=== PATIENT | female | born 1950 | race Caucasian/White ===

== ENCOUNTER 2019-07-30 11:04 | Observation (INO) | payer MEDICARE, OTHER ==
[2019-07-30 11:15] VITALS: RESP 18
[2019-07-30] MEDS ORDERED: LABETALOL 5 MG/ML VIAL MDV IVP STA (11:38)
--- NOTE | 2019-07-30 11:47 | ED ---
General Adult HPI - General Chief complaint: Chest Pain Stated complaint: Chest pressure Source: patient, RN notes reviewed, old records reviewed Mode of arrival: ambulatory Limitations: no limitations - History of Present Illness Initial comments: This a 68-year-old female who presents emergency department stating that over the last few weeks her blood pressures been getting higher and she is been going to see her primary medical care doctor and was recently put on clonidine a few days ago. Patient states last night she had a hot feeling and pressure in her chest and down her right arm and her blood pressure was elevated. Patient states on the way here continues but it is now gone. Patient states she does not have any pain in her chest but is soft hot feeling and a little bit of a tightness. Patient denies any shortness of breath or difficulty breathing. Patient denies any diaphoretic episodes or patient's any nausea. Patient denies any abdomen pelvis. Patient denies any fever chills or cough. Patient states her blood pressures been elevated lately and every time she gets a flushed feeling in her face as well. - Related Data Allergies Allergy/AdvReac Type Severity Reaction Status Date / Time No Known Allergies Allergy Verified 07/30/19 11:15 Review of Systems ROS Statement: Those systems with pertinent positive or pertinent negative responses have been documented in the HPI. ROS Other: All systems not noted in ROS Statement are negative. Past Medical History Past Medical History: Hypertension Additional Past Medical History / Comment(s): glaucoma History of Any Multi-Drug Resistant Organisms: None Reported Past Surgical History: Hysterectomy Past Psychological History: No Psychological Hx Reported Smoking Status: Never smoker Past Alcohol Use History: None Reported Past Drug Use History: None Reported General Exam - General Exam Comments Initial Comments: GENERAL: Patient is well-developed and well-nourished. Patient is nontoxic and well- hydrated and is in mild distress. ENT: Neck is soft and supple. No significant lymphadenopathy is noted. Oropharynx is clear. Moist mucous membranes. Neck has full range of motion without elici ting any pain. EYES: The sclera were anicteric and conjunctiva were pink and moist. Extraocular m ovements were intact and pupils were equal round and reactive to light. Eyelids were unremarkable. PULMONARY: Unlabored respirations. Good breath sounds bilaterally. No audible rales rhonchi or wheezing was noted. CARDIOVASCULAR: There is a regular rate and rhythm without any murmurs gallops or rubs. ABDOMEN: Soft and nontender with normal bowel sounds. SKIN: Skin is clear with no lesions or rashes and otherwise unremarkable. NEUROLOGIC: Patient is alert and oriented x3. Cranial nerves II through XII are grossly intact. Motor and sensory are also intact. Normal speech, volume and content. Symmetrical smile. MUSCULOSKELETAL: Normal extremities with adequate strength and full range of motion. LYMPHATICS: No significant lymphadenopathy is noted PSYCHIATRIC: Normal psychiatric evaluation. Limitations: no limitations Course Vital Signs 07/30/19 07/30/19 11:11 12:05 Temperature 98.1 F Pulse Rate 66 59 L Respiratory 18 18 Rate Blood Pressure 174/86 144/78 O2 Sat by Pulse 98 98 Oximetry Medical Decision Making - Medical Decision Making EKG shows a normal sinus rhythm at 60 bpm VT interval is on a 54 QRS is 92 QT interval 440 QTC is 440. Patient's EKG has some T-wave inversions in leads V1 and V2 and V3. Chest x-ray shows no acute abnormality. I went back into the room and the patient was asymptomatic at this time. I spoke with the [facility] hospitalist and he agreed to admit the patient admitted the patient wrote admitting orders - Lab Data Result diagrams: 07/30/19 11:46 07/30/19 11:46 Lab Results 07/30/19 07/30/19 07/30/19 Range/Units 11:46 11:46 11:46 WBC 5.3 (3.8-10.6) k/uL RBC 4.23 (3.80-5.40) m/uL Hgb 12.5 (11.4-16.0) gm/dL Hct 37.1 (34.0-46.0) % MCV 87.7 (80.0-100.0) fL MCH 29.5 (25.0-35.0) pg MCHC 33.6 (31.0-37.0) g/dL RDW 12.5 (11.5-15.5) % Plt Count 218 (150-450) k/uL Neutrophils % 67 % Lymphocytes % 22 % Monocytes % 6 % Eosinophils % 1 % Basophils % 1 % Neutrophils # 3.6 (1.3-7.7) k/uL Lymphocytes # 1.2 (1.0-4.8) k/uL Monocytes # 0.3 (0-1.0) k/uL Eosinophils # 0.1 (0-0.7) k/uL Basophils # 0.0 (0-0.2) k/uL PT 10.5 (9.0-12.0) sec INR 1.0 (<1.2) APTT 25.4 (22.0-30.0) sec Sodium 138 (137-145) mmol/L Potassium 4.2 (3.5-5.1) mmol/L Chloride 101 (98-107) mmol/L Carbon Dioxide 25 (22-30) mmol/L Anion Gap 12 mmol/L BUN 6 L (7-17) mg/dL Creatinine 0.65 (0.52-1.04) mg/dL Est GFR (CKD-EPI)AfAm >90 (>60 ml/min/1.73 sqM) Est GFR (CKD-EPI)NonAf >90 (>60 ml/min/1.73 sqM) Glucose 93 (74-99) mg/dL Calcium 9.8 (8.4-10.2) mg/dL Magnesium 1.8 (1.6-2.3) mg/dL Total Bilirubin 0.8 (0.2-1.3) mg/dL AST 20 (14-36) U/L ALT 31 (9-52) U/L Alkaline Phosphatase 84 (38-126) U/L Troponin I (0.000-0.034) ng/mL Total Protein 8.1 (6.3-8.2) g/dL Albumin 4.7 (3.5-5.0) g/dL 07/30/19 Range/Units 11:46 WBC (3.8-10.6) k/uL RBC (3.80-5.40) m/uL Hgb (11.4-16.0) gm/dL Hct (34.0-46.0) % MCV (80.0-100.0) fL MCH (25.0-35.0) pg MCHC (31.0-37.0) g/dL RDW (11.5-15.5) % Plt Count (150-450) k/uL Neutrophils % % Lymphocytes % % Monocytes % % Eosinophils % % Basophils % % Neutrophils # (1.3-7.7) k/uL Lymphocytes # (1.0-4.8) k/uL Monocytes # (0-1.0) k/uL Eosinophils # (0-0.7) k/uL Basophils # (0-0.2) k/uL PT (9.0-12.0) sec INR (<1.2) APTT (22.0-30.0) sec Sodium (137-145) mmol/L Potassium (3.5-5.1) mmol/L Chloride (98-107) mmol/L Carbon Dioxide (22-30) mmol/L Anion Gap mmol/L BUN (7-17) mg/dL Creatinine (0.52-1.04) mg/dL Est GFR (CKD-EPI)AfAm (>60 ml/min/1.73 sqM) Est GFR (CKD-EPI)NonAf (>60 ml/min/1.73 sqM) Glucose (74-99) mg/dL Calcium (8.4-10.2) mg/dL Magnesium (1.6-2.3) mg/dL Total Bilirubin (0.2-1.3) mg/dL AST (14-36) U/L ALT (9-52) U/L Alkaline Phosphatase (38-126) U/L Troponin I <0.012 (0.000-0.034) ng/mL Total Protein (6.3-8.2) g/dL Albumin (3.5-5.0) g/dL Disposition Clinical Impression: Chest pain Disposition: ADMITTED IP TO THIS HOSP Referrals: Mariama Johnson DO [Primary Care Provider] - 1-2 days Time of Disposition: 13:01
[2019-07-30 12:08] LABS: Basophils % (A) 1 %; Eosinophils % (A) 1 %; HCT 37.1 % (34.0-46.0); HGB 12.5 gm/dL (11.4-16.0); Lymphocytes % (A) 22 %; MCH 29.5 pg (25.0-35.0); MCHC 33.6 g/dL (31.0-37.0); MCV 87.7 fL (80.0-100.0); Mean Platelet Volume 7.2; Monocytes % (A) 6 %; Neutrophils % (A) 67 %; Platelet Count 218 k/uL (150-450); RBC 4.23 m/uL (3.80-5.40); RDW 12.5 % (11.5-15.5); WBC 5.3 k/uL (3.8-10.6)
[2019-07-30 12:09] LABS: Eosinophils # (A) 0.1 k/uL (0-0.7); Lymphocytes # (A) 1.2 k/uL (1.0-4.8); Monocytes # (A) 0.3 k/uL (0-1.0); Neutrophils # (A) 3.6 k/uL (1.3-7.7)
[2019-07-30 12:17] LABS: ALT 31 U/L (9-52); AST 20 U/L (14-36); African American GFR (CKD) >90 (>60 ml/min/1.73 sqM); Albumin 4.7 g/dL (3.5-5.0); Alkaline Phosphatase 84 U/L (38-126); Anion Gap 12 mmol/L; Blood Urea Nitrogen 6 mg/dL (7-17); Calcium 9.8 mg/dL (8.4-10.2); Carbon Dioxide 25 mmol/L (22-30); Chloride 101 mmol/L (98-107); Glucose 93 mg/dL (74-99); Magnesium 1.8 mg/dL (1.6-2.3); Non-African American GFR(CKD) >90 (>60 ml/min/1.73 sqM); Potassium 4.2 mmol/L (3.5-5.1); Sodium 138 mmol/L (137-145); Total Bilirubin 0.8 mg/dL (0.2-1.3); Total Protein 8.1 g/dL (6.3-8.2)
[2019-07-30 12:19] LABS: Partial Thromboplastin Time 25.4 sec (22.0-30.0); Prothrombin Time 10.5 sec (9.0-12.0)
--- NOTE | 2019-07-30 12:21 | XR ---
EXAMINATION TYPE: XR chest 2V DATE OF EXAM: 07/30/2019 COMPARISON: NONE HISTORY: Chest pain for 1.5 weeks. TECHNIQUE: Frontal and lateral views of the chest are obtained. FINDINGS: Overlying EKG leads are seen. There is no focal air space opacity, pleural effusion, or pn eumothorax seen. The cardiac silhouette size is within normal limits. The osseous structures are i ntact. IMPRESSION: No acute process.
[2019-07-30] MEDS ORDERED: NITROGLYCERIN SL TABS 0.4 MG TAB SUBLINGUAL PRN (13:19)
[2019-07-30] MEDS ORDERED: cloNIDine HCL 0.1 MG TAB PO PRN (14:58)
[2019-07-30] MEDS ORDERED: ACETAMINOPHEN TAB 500 MG TAB PO PRN (14:59)
[2019-07-30] MEDS ORDERED: TEMAZEPAM 15 MG CAP PO PRN (14:59)
[2019-07-30] MEDS ORDERED: ALPRAZolam 0.25 MG TAB PO PRN (14:59)
[2019-07-30] MEDS ORDERED: HYDROcodone/APAP 5-325MG 1 EACH TAB PO PRN (14:59)
[2019-07-30] MEDS ORDERED: hydrALAZINE HCL 20 MG/ML 1 ML VIAL IVP PRN (15:44)
[2019-07-30] MEDS ORDERED: amLODIPine 10 MG TAB PO SCH (16:15)
[2019-07-30] MEDS: NITROGLYCERIN OINT 1 INCH/GM PACKET TOPICAL SCH (17:48)
--- NOTE | 2019-07-30 21:17 | HP ---
HISTORY AND PHYSICAL CHIEF COMPLAINT: Chest pain. HISTORY OF PRESENT ILLNESS: This 68-year-old woman with a past medical history of multiple medical problems including hypertension, glaucoma, being followed by Dr. Mariama Johnson in the outpatient setting complains of chest pain. The patient is under tremendous stress recently according to her by selling apartment, daughter's wedding and the son having a baby and such. The patient apparently having symptoms for the past several days. Patient had chest pain which is felt in the anterior part of chest, which is mostly occurring when the patient is going to sleep with some palpitations. Patient also had some flushing sensations soft eating food also. Blood pressure elevated up to more than 200. Patient came to [facility], admitted for further evaluation. There is no history of fever, rigors. No history of headache, loss of consciousness, seizures. PAST MEDICAL HISTORY: Hypertension, glaucoma. MEDICATIONS: Prior to admission include home medications are Catapres 0.1 p.o. b.i.d. p.r.n., Toprol- XL 25 mg p.o. daily, Simbrinza 1 drop both eyes b.i.d. ALLERGIES: None. FAMILY HISTORY: History of CHF in the family. SOCIAL HISTORY: No history of smoking. No alcohol intake. REVIEW OF SYSTEMS: ENT As mentioned earlier. CARDIOVASCULAR As mentioned earlier. RESPIRATORY No cough, no hemoptysis. GI No nausea, vomiting, or diarrhea. No dysuria. NERVOUS No numbness or weakness. ALLERGY/IMMUNOLOGY No asthma or hayfever. MUSCULOSKELETAL As mentioned earlier. HEMATOLOGY/ONCOLOGY Negative. ENDOCRINE No history of diabetes or hypothyroidism. SKIN Negative. CONSTITUTIONAL As mentioned earlier. PSYCHIATRY As mentioned earlier. PHYSICAL EXAMINATION: Alert and oriented x3. Pulse 59, blood pressure 170/71, respiration 18, temp 97.7, pulse ox 98% on room air. HEENT: Conjunctivae normal. Oral mucosa moist. NECK: No jugular venous distention. No lymph node enlargement. CARDIOVASCULAR: S1, S2. RESPIRATORY: Diminished breath sounds at the bases. No rhonchi, no crackles. ABDOMEN: Soft, nontender. LEGS: No swelling. NERVOUS SYSTEM: Higher functions mentioned earlier. Moves all four limbs. No focal deficits. LYMPHATICS: No lymph node in neck or axilla. SKIN: No rash. JOINTS: No active deforming arthropathy. LAB: CBC, CMP within normal. Troponins are negative. Chest x-ray no acute changes. EKG personally reviewed shows ST-T changes minimal. ASSESSMENT: 1. Chest pain, possible unstable angina. 2. ST-T changes on EKG. 3. Accelerated hypertension and hypertensive urgency. 4. Hypertension. 5. Glaucoma. 6. Hysterectomy. 7. Social stressors. RECOMMENDATION AND DISCUSSION: In this 68-year-old woman who presented with multiple medical issues, at this time I recommend to continue current medications, continue symptomatic treatment. Antiplatelet and beta blockers. Adjust medications. Cardiology consultation. Possible stress test. Guarded prognosis because of multiple complex medical issues. Further recommendations to follow. MMODL / IJN: [id number] /
[2019-07-30] MEDS: DORZOLAMIDE HCL 2% DROPS 10 ML BTL BOTH EYES SCH (21:45)
[2019-07-30] MEDS: BRIMONIDINE TARTRATE 0.2% DROPS 5 ML BTL BOTH EYES SCH (21:45)
[2019-07-30] MEDS: METOPROLOL SUCCINATE (ER) 25 MG TAB.ER.24H PO SCH (21:45)
[2019-07-30] MEDS ORDERED: MELATONIN 3 MG TABLET PO SCH (23:15)
[2019-07-31] MEDS: NITROGLYCERIN OINT 1 INCH/GM PACKET TOPICAL SCH ×3 (00:02→11:49)
[2019-07-31 04:48] LABS: Cholesterol 205 mg/dL (<200); HDL Cholesterol 44 mg/dL (40-60); LDL Cholesterol,Calculated 141 mg/dL (0-99); Triglycerides 98 mg/dL (<150)
[2019-07-31] MEDS ORDERED: PANTOPRAZOLE 40 MG TABLET PO SCH (07:30)
[2019-07-31] MEDS ORDERED: amLODIPine 5 MG TAB PO SCH (09:00)
[2019-07-31] MEDS ORDERED: METOPROLOL SUCCINATE (ER) 25 MG TAB.ER.24H PO SCH (09:00)
[2019-07-31] MEDS ORDERED: ASPIRIN 325 MG TAB PO SCH (09:00)
[2019-07-31] MEDS: METOPROLOL SUCCINATE (ER) 25 MG TAB.ER.24H PO SCH (10:32)
[2019-07-31] MEDS: BRIMONIDINE TARTRATE 0.2% DROPS 5 ML BTL BOTH EYES SCH (10:33)
[2019-07-31] MEDS: DORZOLAMIDE HCL 2% DROPS 10 ML BTL BOTH EYES SCH (10:33)
[2019-07-31 11:32] VITALS: BP 106/64; PULSE 55; TEMP 97.5
--- NOTE | 2019-07-31 11:36 | P.CRDCN ---
History of Present Illness Consult date: 07/31/19 Chief complaint: Chest pain History of present illness: This is a very pleasant 68-year-old female patient with a past medical history significant for hypertension and dyslipidemia presented to the hospital complaining of chest discomfort. The patient has been struggling with uncontrolled blood pressure for the last several weeks. Initially she was started on lisinopril and according to her that given her chest discomfort and subsequently she was changed to losartan which also she did not feel good on it. After that she was started on Norvasc and also she felt weak on the Norvasc. The reason she presented to the hospital this time because she has been experiencing chest discomfort. The patient described the discomfort as a nonexertional and mainly in the mid the chest without any radiation or associated symptoms of shortness of breath, dizziness, heart racing, or syncope. She stated that the chest discomfort is mostly by the end of the day when she is laying in bed and she has been noticing that the pressure has been elevated at night. Currently she is chest pain-free. The EKG showed sinus rhythm with T-wave inversion in the anteroseptal leads. I don't have any old EKG to compare to this one. She had 3 sets of cardiac enzymes came in to be unremarkable. The chest x-ray did not show any acute abnormalities. Currently the patient is chest pain-free. I had a long discussion with the patient regarding the next hong p which is ruling out coronary artery disease as an etiology for her symptoms. I also did tell the patient that the chest discomfort could be related to uncontrolled blood pressure. Because the chest discomfort is not exertional and because that she is chest pain-free at this point I did recommend proceeding with a stress test. The patient is going to get up and around and if she is chest pain-free she possibly can be discharged home and have the stress test as an outpatient. Unless she develop any chest pain or chest discomfort and at that point I would pursue with a coronary angiogram. Past Medical History Past Medical History: Hypertension Additional Past Medical History / Comment(s): glaucoma History of Any Multi-Drug Resistant Organisms: None Reported Past Surgical History: Hysterectomy Past Anesthesia/Blood Transfusion Reactions: No Reported Reaction Past Psychological History: No Psychological Hx Reported Smoking Status: Never smoker Past Alcohol Use History: None Reported Past Drug Use History: None Reported - Past Family History Father Family Medical History: Congestive Heart Failure (CHF) Mother Family Medical History: Dementia Medications and Allergies Home Medications Medication Instructions Recorded Confirmed Type Brinzolamide/Brimonidine Tart 1 drop BOTH EYES BID 07/30/19 07/30/19 History [Simbrinza 1%-0.2% Eye Drops] cloNIDine HCL [Catapres] 0.1 mg PO BID PRN 07/30/19 07/30/19 History Acetaminophen Tab [Tylenol] 500 mg PO Q6HR PRN tab 07/31/19 Rx Atorvastatin Calcium [Lipitor] 10 mg PO DAILY #30 tab 07/31/19 Rx Metoprolol Succinate (ER) [Toprol 25 mg PO BID #30 tab.er.24h 07/31/19 Rx XL] amLODIPine [Norvasc] 5 mg PO DAILY #30 tab 07/31/19 Rx Allergies Allergy/AdvReac Type Severity Reaction Status Date / Time No Known Allergies Allergy Verified 07/30/19 13:12 Physical Exam Vitals: Vital Signs Temp Pulse Pulse Resp BP BP BP 07/31/19 11:30 97.5 F L 55 L 18 106/64 07/31/19 07:00 97.9 F 63 18 136/76 07/31/19 04:00 98.4 F 63 18 130/68 07/30/19 23:42 97.8 F 53 L 18 120/64 07/30/19 20:51 07/30/19 20:00 98.0 F 56 L 18 131/70 07/30/19 17:46 62 116/68 07/30/19 15:03 163/68 07/30/19 14:16 97.7 F 59 L 18 170/71 07/30/19 12:05 59 L 18 144/78 Pulse Ox 07/31/19 11:30 96 07/31/19 07:00 98 07/31/19 04:00 97 07/30/19 23:42 96 07/30/19 20:51 97 07/30/19 20:00 97 07/30/19 17:46 07/30/19 15:03 07/30/19 14:16 99 07/30/19 12:05 98 Intake and Output 07/30/19 07/31/19 07/31/19 22:59 06:59 14:59 Other: Voiding Method Toilet Toilet Toilet # Voids 2 1 - Constitutional General appearance: no acute distress - Respiratory Respiratory: bilateral: CTA - Cardiovascular Rhythm: regular Heart sounds: normal: S1, S2 Results 07/30/19 11:46 07/30/19 11:46 Cardiac Enzymes 07/30/19 07/30/19 07/30/19 Range/Units 11:46 11:46 18:02 AST 20 (14-36) U/L Troponin I <0.012 <0.012 (0.000-0.034) ng/mL 07/30/19 Range/Units 23:45 AST (14-36) U/L Troponin I <0.012 (0.000-0.034) ng/mL Coagulation 07/30/19 Range/Units 11:46 PT 10.5 (9.0-12.0) sec APTT 25.4 (22.0-30.0) sec Lipids 07/30/19 Range/Units 11:46 Triglycerides 98 (<150) mg/dL Cholesterol 205 H (<200) mg/dL HDL Cholesterol 44 (40-60) mg/dL CBC 07/30/19 Range/Units 11:46 WBC 5.3 (3.8-10.6) k/uL RBC 4.23 (3.80-5.40) m/uL Hgb 12.5 (11.4-16.0) gm/dL Hct 37.1 (34.0-46.0) % Plt Count 218 (150-450) k/uL Comprehensive Metabolic Panel 07/30/19 Range/Units 11:46 Sodium 138 (137-145) mmol/L Potassium 4.2 (3.5-5.1) mmol/L Chloride 101 (98-107) mmol/L Carbon Dioxide 25 (22-30) mmol/L BUN 6 L (7-17) mg/dL Creatinine 0.65 (0.52-1.04) mg/dL Glucose 93 (74-99) mg/dL Calcium 9.8 (8.4-10.2) mg/dL AST 20 (14-36) U/L ALT 31 (9-52) U/L Alkaline Phosphatase 84 (38-126) U/L Total Protein 8.1 (6.3-8.2) g/dL Albumin 4.7 (3.5-5.0) g/dL Current Medications Generic Name Dose Route Start Last Admin Trade Name Freq PRN Reason Stop Dose Admin Acetaminophen 500 mg 07/30/19 14:59 Tylenol Tab PO Q6HR PRN Fever and/ or MILD Pain Hydrocodone Bitart/Acetaminophen 1 each 07/30/19 14:59 Amasa 5-325 PO Q6HR PRN MODERATE Pain Alprazolam 0.25 mg 07/30/19 14:59 Xanax PO TID PRN Anxiety Amlodipine Besylate 5 mg 07/31/19 09:00 07/31/19 10:33 Norvasc PO 5 mg DAILY [facility] Administration Aspirin 325 mg 07/31/19 09:00 07/31/19 10:33 Aspirin PO 325 mg DAILY [facility] Administration Brimonidine Tartrate 1 drops 07/30/19 21:00 07/31/19 10:33 Alphagan P 0.2% Ophth Soln BOTH EYES Not Given BID [facility] Clonidine 0.1 mg 07/30/19 14:58 Catapres PO BID PRN BLOOD PRESSURE >160 Dorzolamide HCl 1 drops 07/30/19 21:00 07/31/19 10:33 Trusopt BOTH EYES Not Given BID [facility] Hydralazine HCl 10 mg 07/30/19 15:44 Apresoline IVP Q4HR PRN Blood Pressure - High Melatonin 3 mg 07/30/19 23:15 07/30/19 23:23 Melatonin PO 3 mg HS [facility] Administration Metoprolol Succinate 25 mg 07/30/19 21:00 07/31/19 10:32 Toprol Xl PO 25 mg BID [facility] Administration Nitroglycerin 0.4 mg 07/30/19 13:19 Nitrostat SUBLINGUAL Q5M PRN Chest Pain Nitroglycerin 1 inch 07/30/19 18:00 07/31/19 02:03 Nitro-Bid Oint TOPICAL Not Given Q6HR [facility] Pantoprazole Sodium 40 mg 07/31/19 07:30 07/31/19 10:33 Protonix PO 40 mg [id number] [facility] Administration Temazepam 15 mg 07/30/19 14:59 Restoril PO HS PRN Insomnia Intake and Output 07/30/19 07/31/19 07/31/19 22:59 06:59 14:59 Other: Voiding Method Toilet Toilet Toilet # Voids 2 1 07/30/19 11:46 07/30/19 11:46 Assessment and Plan Assessment: Assessment #1 atypical chest discomfort #2 hypertension #3 dyslipidemia Plan #1 acute coronary event was ruled out #2 her blood pressure seems to be under good control throughout her hospital stay #3 I would physically exert the patient to see if he developed any chest pain or chest discomfort #4 if she is chest pain-free she possibly can be discharged home and I'll follow-up with the patient as an outpatient Thank you for allowing us participate in her care
--- NOTE | 2019-07-31 15:02 | ECHOF ---
Referral Reason:chest pain MEASUREMENTS -------- HEIGHT: 167.6 cm WEIGHT: 77.1 kg BP: RVIDd: 3.1 cm (< 3.3) IVSd: 1.2 cm (0.6 - 1.1) LVIDd: 4.1 cm (3.9 - 5.3) LVPWd: 1.1 cm (0.6 - 1.1) IVSs: 1.8 cm LVIDs: 2.4 cm LVPWs: 1.5 cm LA Diam: 3.0 cm (2.7 - 3.8) LAESV Index (A-L): 23.28 ml/m Ao Diam: 3.1 cm (2.0 - 3.7) AV Cusp: 2.1 cm (1.5 - 2.6) MV EXCURSION: 15.965 mm (> 18.000) MV EF SLOPE: 115 mm/s (70 - 150) EPSS: 0.3 cm MV E Dami: 1.05 m/s MV DecT: 174 ms MV A Dami: 1.04 m/s MV E/A Ratio: 1.02 AR PHT: 629 ms FINDINGS -------- Sinus rhythm. This was a technically adequate study. The left ventricular size is normal. There is borderline concentric left ventricular hypertrophy. Overall left ventricular systolic function is normal with, an EF between 60 - 65 %. The diastolic filling pattern is normal for the age of the patient 11.95. The right ventricle is normal in size. Normal LA size by volume 22+/-6 ml/m2. The right atrium is normal in size. Interatrial and interventricular septum intact. The aortic valve is trileaflet and appears structurally normal. There is [id number] aortic re gurgitation. The mitral valve is normal. The tricuspid valve appears structurally normal. Trace/mild (physiologic) pulmonic regurgitation. The aortic root size is normal. Normal inferior vena cava with normal inspiratory collapse consistent with estimated right atrial pre ssure of 5 mmHg. There is no pericardial effusion. CONCLUSIONS -------- 1. Sinus rhythm. 2. This was a technically adequate study. 3. The left ventricular size is normal. 4. There is borderline concentric left ventricular hypertrophy. 5. Overall left ventricular systolic function is normal with, an EF between 60 - 65 %. 6. The diastolic filling pattern is normal for the age of the patient 11.95 7. The right ventricle is normal in size. 8. Normal LA size by volume 22+/-6 ml/m2. 9. The right atrium is normal in size. 10. Interatrial and interventricular septum intact. 11. The aortic valve is trileaflet and appears structurally normal. 12. There is [id number] aortic regurgitation. 13. The mitral valve is normal. 14. The tricuspid valve appears structurally normal. 15. Trace/mild (physiologic) pulmonic regurgitation. 16. The aortic root size is normal. 17. Normal inferior vena cava with normal inspiratory collapse consistent with estimated right atrial pressure of 5 mmHg. 18. There is no pericardial effusion. GLASS BULB SILVERER: Tammy Ramirez RDCS
--- NOTE | 2019-08-01 00:02 | DS ---
DISCHARGE SUMMARY DATE OF SERVICE: 07/31/2019 FINAL DIAGNOSES: 1. Chest pain myocardial infarction ruled out possibly musculoskeletal, rule out coronary artery disease. 2. ST-T changes in the EKG. 3. Accelerated hypertension and hypertensive urgency. 4. History of hypertension. 5. Glaucoma. 6. History of hysterectomy. 7. Social stressors. DISCHARGE DISPOSITION: The patient will be discharged in stable condition with guarded prognosis. Discharge cleared by Cardiology. HISTORY OF PRESENT ILLNESS: This 68-year-old woman with a past medical history of multiple medical problems being followed by Dr. Mariama Gomez in the outpatient setting was admitted with chest pain, multiple other symptomatology. Blood pressure is consistently elevated. Medication adjusted. Patient improved significantly. Cardiology saw the patient and recommend outpatient followup. Two-D echo with Doppler was done which showed ejection fraction about 60-65 percent and minimal valvular abnormalities including mild to moderate aortic regurgitation. Recommended outpatient followup. On exam, vitals are stable. Cardiovascular S1, S2. Abdomen soft. Nervous system no focal deficits. I would recommend the patient monitor blood pressure twice daily and follow up with Dr. Mariama Gomez in the outpatient setting. DISCHARGE ADVICE AND MEDICATIONS: 1. Diet is cardiac diet. 2. Activity limited until followup. 3. Follow up with Dr. Stephen as advised. 4. Follow up with primary physician in 2-3 days. 5. Possible outpatient stress test. DISCHARGE MEDICATIONS: 1. Clonidine 0.1 p.o. b.i.d. p.r.n. 2. Simbrinza 1 drop both eyes b.i.d. 3. Imdur 30 mg p.o. daily. 4. Lipitor 10 mg p.o. daily. 5. Norvasc 5 mg p.o. daily. 6. Toprol-XL 25 mg p.o. b.i.d. 7. Tylenol 500 mg q.6h p.r.n. Once again, patient will be discharged in stable condition with guarded prognosis. MMODL / IJN: [id number] /
== END 2019-07-31 13:13 | disposition home or self-care (01) ==
LOC: EC 11:04 → 1SOBS 13:19
PROVIDERS: ADMIT Hospitalist; ATTEND Hospitalist
DX: R07.89 Other chest pain (principal); M79.601 Pain in right arm; R94.31 Abnormal electrocardiogram [ECG] [EKG]; I10 Essential (primary) hypertension; I16.0 Hypertensive urgency; H40.9 Unspecified glaucoma; F43.8 Other reactions to severe stress; I35.1 Nonrheumatic aortic (valve) insufficiency; E78.5 Hyperlipidemia, unspecified; Z90.710 Acquired absence of both cervix and uterus; Z79.899 Other long term (current) drug therapy; Z82.49 Family history of ischemic heart disease and other diseases of the circulatory system; Z81.8 Family history of other mental and behavioral disorders
CPT/HCPCS: 93005 ×2; 99285; 36415; 94760; 93306; 85379; 80061; 80053; 84443; 83735; 84484; 85025; 85610; 85730; 71046; G0378 ×2